=== PATIENT | female | born 1965 | race Caucasian/White ===

== ENCOUNTER 2018-04-11 16:36 | Emergency (ER) | payer BC ==
--- NOTE | 2018-04-11 17:57 | EDPHY ---
HPI/HX/ROS/PE/MDM Narrative: CHIEF COMPLAINT: "every time I try to talk I get severe pain in the back of my head" for years HPI: The patient is a 53 y/o female arriving with her friend complaining of neck and back pain for the last few months. For the last few years she's had difficulty and pain with speaking and reports she's seen her PCP and a voice doctor/therapist for this. She had imaging and other evaluations that were all negative in regards to this difficulty speaking. She reports she had a CT and MRI of her neck 6 months ago in [place] that were all negative. Her pain is aggravated by most actions including lying down and sitting and she describes the sensation of something "pinching from her spinal cord" to her head. She is not taking anything for pain and says she will not take any medications. Her friend says, "we're willing to pay for an MRI and a CAT scan, we don't care, we just want to get this process started." REVIEW OF SYSTEMS: A comprehensive 10 system review of systems is otherwise negative aside from elements mentioned in the history of present illness. PMH: Remote TBI SOCIAL HISTORY: Daughter at bedside. Patient works in healthcare IT. No drug use. Records per [facility]: MRI cervical spine 11/14/17 at [facility] showed cervical foraminal narrowing and degenerative changes. PHYSICAL EXAM: General:Patient is alert, in no acute distress. Whispering. ENT:Eyes are normal to inspection. ENT inspection normal. Neck: Normal inspection. Full range of motion. Respiratory:No respiratory distress. Breath sounds normal bilaterally. Cardiovascular: Regular rate and rhythm. Strong peripheral pulses. Normal cap refill. Abdomen:The abdomen is nontender to palpation. There are no peritoneal signs. Back: Normal to inspection. No tenderness to palpation. Skin: Normal color. No rash. Warm and dry. Extremities: Normal appearance. Full range of motion. Neuro: Oriented x3. Normal motor function. Normal sensory function. Fluent speech, but conducted at loud whisper. No pronator drift, hr intern intact, EOMI, normal gait. ED Course: Discussed options with patient after reviewing her imaging. She has opted to try script of gabapentin, avoid imaging tonight, and follow up with her doctor next week. Return precautiongs discussed. MDM: This patient presents with severe headache of several years duration which seems to be radiating from neck. She has had relatively recent MRI of c-spine which showed DDD, but no emergent cause of pain. Given her description of pain , it certainly seems neuropathic in nature, so I think a trial of gabapentin is worthwhile. Despite extensive discussion, patient refuses all other meds and testing. I have given her a neurology referral. General Time Seen by Provider: 04/11/18 17:34 Initial Vital Signs: Initial Vital Signs Temperature (C) 36.7 C 04/11/18 16:46 Heart Rate 73 04/11/18 16:46 Respiratory Rate 18 04/11/18 16:46 Blood Pressure 141/81 H 04/11/18 16:46 O2 Sat (%) 96 04/11/18 16:46 O2 Delivery Mode Room Air Allergies/Adverse Reactions: Sulfa (Sulfonamide Antibiotics) Allergy (Verified 04/11/18 16:46) Home Medications: Medication Instructions Recorded Gabapentin [Neurontin 300 MG (*)] 300 mg PO HS 7 Days cap 04/11/18 Departure - Departure Disposition: Home, Routine, Self-Care Clinical Impression: Neck pain Condition: Good Instructions: Neck Pain (ED) Additional Instructions: Follow-up with a neurologist within one week. Use Neurontin as prescribed. Referrals: NONE *PRIMARY CARE P,. [Primary Care Provider] - As per Instructions Tripp Bar DO [Doctor of Osteopathy] - As per Instructions Prescriptions: Gabapentin [Neurontin 300 MG (*)] 300 mg PO HS 7 Days cap Report Scribed for: Jasvir Goins Report Scribed by: Emely Manning Date of Report: 04/11/18 Time of Report: 17:57 Physician Review and Approval Statement: Portions of this note were transcribed by an ED scribe. I personally performed the history, physical exam, and medical decision making; and confirm the accuracy of the information in the transcribed note.
[2018-04-11 18:24] VITALS: BP 158/90
== END 2018-04-11 18:21 | disposition home or self-care (01) ==
DX: M54.2 Cervicalgia (principal); M54.9 Dorsalgia, unspecified

== ENCOUNTER → 2018-05-07 | Outpatient (CLI) | payer BC ==
--- NOTE | 2018-05-07 15:16 | CPEEG ---
DATE OF STUDY: 05/07/2018 INTERPRETATION: Normal EEG during wakefulness and sleep. There were no potentially epileptogenic ab normalities present during the recording. REPORT: This EEG contains 10 Hz alpha activity to the posterior head regions. There was no abnormal activation at rest, during photic stimulation, or hyperventilation. The patient became drowsy and f ell asleep during the study. There was no abnormal activation during drowsiness, sleep, or during ti mes of arousal. /[id number]/MODL
== END ==
LOC: FCPNEURO 11:23
PROVIDERS: ATTEND Physician Assistant Medical
DX: R47.9 Unspecified speech disturbances (principal); M54.2 Cervicalgia; R41.0 Disorientation, unspecified